=== PATIENT | male | born 1985 | race Caucasian/White ===

== ENCOUNTER 2017-05-13 12:59 | Emergency (ER) | payer MEDICAID ==
[~2017-05-13] VITALS: Ht 165.1 cm; Wt 94.3 kg
[2017-05-13 14:05] VITALS: BP 141/87
== END 2017-05-13 14:05 | disposition home or self-care (01) ==
LOC: ED 12:59
DX: H11.32 Conjunctival hemorrhage, left eye (principal)

== ENCOUNTER 2019-01-20 13:50 | Emergency (ER) | payer MEDICAID ==
[~2019-01-20] VITALS: Ht 177.8 cm; Wt 84.8 kg
[2019-01-20 15:14] LABS: microscopic required? NO
[2019-01-20 15:35] VITALS: BP 129/80
[2019-01-20 15:45] LABS: urine erythrocyte NEGATIVE (NEGATIVE)
== END 2019-01-20 15:35 | disposition home or self-care (01) ==
LOC: ED 13:50
PROVIDERS: Specialist
DX: B35.6 Tinea cruris (principal)
CPT/HCPCS: 87491; 87591